=== PATIENT | male | born 1995 | race African-American/Black ===

== ENCOUNTER 2021-09-03 09:41 | Emergency (ER) | payer SELFPAY ==
--- NOTE | ~2021-09-03 | XR_ITS ---
EXAMINATION: [id number] DATE: 09/03/2021 10:31 INDICATION: Left chest pain. TECHNIQUE: A frontal view of the chest and 2 views on 3 radiographs of the left ribs were obtained. COMPARISON: None. FINDINGS: The chest demonstrates clear lungs without pneumonia, pleural effusion, or pneumothorax. Th e heart size is normal. There are fractures of anterior left ninth and 10th ribs. IMPRESSION: 1. Acute fractures of anterior left ninth and 10th ribs. Reviewed, dictated and finalized at location A.
[2021-09-03 09:47] VITALS: BP 102/66; PULSE 78; RESP 16; TEMP 36.6; O2SAT 100
--- NOTE | 2021-09-03 11:23 | ED.GENADULT ---
HPI - General Adult General Chief complaint: Back Pain/Injury Stated complaint: rib pain Time Seen by Provider: 09/03/21 10:13 Source: patient Mode of arrival: ambulatory Limitations: no limitations History of Present Illness HPI narrative: Patient presents with chief complaint of pain to the left lower ribs that began 1 week ago while he was hunched over in the car and sneeze. Patient reports pain to the area that is worse when he coughs or takes a deep breath. Patient denies coughing up blood, shortness of breath, wheezing, fever, chills or any other symptoms. Related Data Allergies Allergy/AdvReac Type Severity Reaction Status Date / Time No Known Allergies Allergy Verified 09/03/21 11:19 Review of Systems Review of Systems: CONSTITUTIONAL: Denies fever, chills, or sweats. EYES: Denies visual changes, redness, or discharge. ENT: Denies rhinorrhea, congestion, sore throat, or otalgia. CARDIOVASCULAR: Denies chest pain, palpitations, or edema. RESPIRATORY: Denies cough or dyspnea. GASTROINTESTINAL: Denies abdominal pain, nausea, vomiting, or diarrhea. GENITOURINARY: Denies dysuria or hematuria. SKIN: Denies rash or itching. MUSCULOSKELETAL: Reports rib pain denies back pain, or myalgia. NEUROLOGIC: Denies headache, numbness, dizziness, or weakness. PSYCHIATRIC: Denies anxiety or depression. Exam Narrative: GENERAL: Well-appearing, well-nourished, and in no acute distress. HEAD: Normocephalic, atraumatic. EYES: PERRLA and EOMI. CHEST: Clear to auscultation. No respiratory distress. No wheezes rales or rhonchi. Discomfort with deep inspiration- splinting/guarding noted. HEART: Regular rate and rhythm. No murmur heard. Normal peripheral pulses. EXTREMITIES: Normal range of motion. No edema. SKIN: Warm, dry, no rash. NEURO: No focal deficits. Alert and oriented x3. PSYCH: Normal mood and affect. Course Vital Signs Vital signs: Vital Signs Temperature 97.9 F 09/03/21 09:47 Pulse Rate 78 09/03/21 09:47 Respiratory Rate 16 09/03/21 09:47 Blood Pressure 102/66 09/03/21 09:47 Pulse Oximetry 100 09/03/21 09:47 Temperature 97.9 F 09/03/21 09:47 Pulse Rate 78 09/03/21 09:47 Respiratory Rate 16 09/03/21 09:47 Blood Pressure 102/66 09/03/21 09:47 Pulse Oximetry 100 09/03/21 09:47 Medical Decision Making MDM Narrative Medical decision making narrative: Discussed with patient the importance of taking deep breaths to avoid complications such as pneumonia and to follow-up with his primary care. Patient has been placed on restrictions for lifting and rotation for his job. Patient has been instructed to avoid activities that worsen the pain. Patient does not have any emergent symptoms at this time and is ready for discharge. Vital Signs Vital Signs: Vital Signs Temperature 97.9 F 09/03/21 09:47 Pulse Rate 78 09/03/21 09:47 Respiratory Rate 16 09/03/21 09:47 Blood Pressure 102/66 09/03/21 09:47 Pulse Oximetry 100 09/03/21 09:47 Temperature 97.9 F 09/03/21 09:47 Pulse Rate 78 09/03/21 09:47 Respiratory Rate 16 09/03/21 09:47 Blood Pressure 102/66 09/03/21 09:47 Pulse Oximetry 100 09/03/21 09:47 Imaging Data Radiologist's impression: ITS Impressions Ribs w/Chest X-Ray 09/03/21 10:44 IMPRESSION: 1. Acute fractures of anterior left ninth and 10th ribs. Discharge Plan Discharge Clinical Impression: Fracture of rib of left side Qualifiers: Encounter type: initial encounter Rib fracture type: multiple ribs Fracture type: closed Qualified Code(s): S22.42XA - Multiple fractures of ribs, left side, initial encounter for closed fracture Patient Disposition: Home, Self-Care Condition: Stable Instructions: Antibiotic Form, Rib Fracture (ED) Additional Instructions: Follow up with primary care for reevaluation within 1 week. Tylenol and ibuprofen for discomfort. Take tramadol as directed as needed for breakthrough pain. Be
[2021-09-03 11:37] VITALS: BP 123/80; PULSE 75; RESP 16; O2SAT 100
== END 2021-09-03 11:38 | disposition home or self-care (01) ==
LOC: ANHED 11:26
PROVIDERS: Emergency Provider Emergency Medicine
DX: S22.42XA Multiple fractures of ribs, left side, initial encounter for closed fracture (principal); X58.XXXA Exposure to other specified factors, initial encounter
CPT/HCPCS: 71101; 99283

== ENCOUNTER 2021-11-15 20:43 | Emergency (ER) | payer SELFPAY ==
--- NOTE | 2021-11-15 21:24 | PC.NURSE ---
Pt called for triage, no answer.
--- NOTE | 2021-11-15 21:29 | PC.NURSE ---
pt. called 2x for triage. no answer.
== END 2021-11-16 05:31 | disposition left against medical advice (07) ==
DX: Z53.21 Procedure and treatment not carried out due to patient leaving prior to being seen by health care provider (principal)
CPT/HCPCS: 99199